=== PATIENT | female | born 1980 | race Caucasian/White ===

== ENCOUNTER 2016-09-26 02:00 | Inpatient (IN) | payer OTHER ==
[~2016-09-26] VITALS: Ht 170.2 cm; Wt 103.9 kg
[2016-09-26] MEDS ORDERED: OXYTOCIN/NORMAL SALINE 1,000 ML IV SCH ×2 (02:11→16:20)
[2016-09-26] MEDS ORDERED: NALBUPHINE HCL 10 MG/ML AMP IVP PRN (02:15)
[2016-09-26] MEDS ORDERED: TERBUTALINE SULFATE 1 MG/ML VIAL SUBCUT ONE (02:15)
[2016-09-26] MEDS ORDERED: MISOPROSTOL 100 MCG TABLET (CYTOTEC) PO PRN (02:15)
[2016-09-26 02:30] VITALS: BP_SYST 125
[2016-09-26 02:45] LABS: BASOPHILS % (AUTO) 0.2 % (0.0-2.0); EOSINOPHILS # (AUTO) 0.1 K/uL (0.0-0.4); EOSINOPHILS % (AUTO) 0.5 % (0.0-4.0); HEMOGLOBIN 10.2 g/dL (12.0-16.0); LYMPHOCYTES # (AUTO) 2.4 K/uL (1.0-5.5); MEAN CORPUSCULAR HEMOGLOBIN 25 pg (27-31); MEAN CORPUSCULAR HGB CONC 33 % (32-36); MEAN CORPUSCULAR VOLUME 77 fL (79.0-98.0); MONOCYTES # (AUTO) 0.5 K/uL (0.0-1.0); MONOCYTES % (AUTO) 4.2 % (1.7-9.3); NEUTROPHILS # (AUTO) 9.5 K/uL (1.8-7.7); NEUTROPHILS % (AUTO) 76.1 % (40.0-70.0); PLATELET COUNT (AUTO) 325 K/uL (130-430); RED BLOOD CELL COUNT(AUTO) 4.02 MIL/uL (4.2-6.2); RED CELL DISTRIBUTION WIDTH 14.2 % (9.0-15.0); WHITE BLOOD COUNT (AUTO) 12.5 K/uL (4.8-10.8)
[2016-09-26] MEDS: LR 1,000 ML IV SCH ×2 (02:53→10:25)
[2016-09-26] MEDS ORDERED: FENT2mCg/mL-ROPIVA0.2%/NS EPID 0 ML EP ONE (05:19)
[2016-09-26] MEDS ORDERED: fentaNYL CITRATE/PF 100 MCG/2 ML AMP ONE (07:44)
[2016-09-26] MEDS ORDERED: FENT2mCg/mL-ROPIVA0.2%/NS EPID 150 ML EP ONE (07:45)
[2016-09-26] MEDS ORDERED: LR 500 ML IV ONE ×2 (08:42→14:27)
[2016-09-26] MEDS ORDERED: FENT2mCg/mL-ROPIVA0.2%/NS EPID 150 ML EP SCH ×2 (08:45→14:30)
[2016-09-26] MEDS ORDERED: ePHEDrine sulfate 50 MG/ML VIAL IVP PRN ×2 (08:45→14:30)
[2016-09-26] MEDS ORDERED: fentaNYL CITRATE/PF 100 MCG/2 ML AMP EP ONE ×2 (08:45→14:30)
[2016-09-26] MEDS ORDERED: ROPIVACAINE 40 MG/20 ML AMP EP ONE (11:00)
[2016-09-26] MEDS ORDERED: ONDANSETRON HCL 4 MG/2 ML VIAL IVP PRN (14:30)
[2016-09-26] MEDS ORDERED: OXYTOCIN/NORMAL SALINE 1,000 ML IV ONE (16:20)
[2016-09-26] MEDS ORDERED: GLYCERIN/WITCH HAZEL (TUCKS PADS) TP PRN (16:30)
[2016-09-26] MEDS ORDERED: MEASLES,MUMPS&RUBELLA VACC/PF 12500 UNIT/0.5 ML VIAL SUBQ PRN (16:30)
[2016-09-26] MEDS ORDERED: RHO(D) IMMUNE GLOBULIN/MALTOSE 1500 UNITS/1.3 ML (WINHRO) IM PRN (16:30)
[2016-09-26] MEDS ORDERED: DERMOPLAST SPRAY TP PRN (16:30)
[2016-09-26] MEDS ORDERED: ACETAMINOPHEN 325 MG TABLET PO PRN (16:30)
[2016-09-26] MEDS ORDERED: LANOLIN 7 GM OINT. TP PRN (16:30)
[2016-09-26] MEDS ORDERED: HYDROCORTISONE 0.5%, 28.35 GM TOPICAL CREAM TP PRN (16:30)
[2016-09-26] MEDS ORDERED: METHYLERGONOVINE MALEATE 0.2 MG TABLET PO PRN (16:30)
[2016-09-26] MEDS ORDERED: ANUSOL 1 EA SUPP.RECT (PREPARATION H) RC PRN (16:30)
[2016-09-26] MEDS ORDERED: OXYCODONE/ACETAMINOPHEN 5-325 TABLET PO PRN ×2 (16:30)
[2016-09-26] MEDS ORDERED: DOCUSATE SODIUM 100 MG CAPSULE PO PRN (16:30)
[2016-09-26] MEDS ORDERED: SENNOSIDES/DOCUSATE SODIUM 1 TAB TABLET(SENOKOT-S) PO PRN (16:30)
[2016-09-26] MEDS: IBUPROFEN 600 MG TABLET PO SCH (18:03)
[2016-09-26] MEDS ORDERED: TEMAZEPAM 15 MG CAPSULE PO PRN (21:00)
[2016-09-27] MEDS: IBUPROFEN 600 MG TABLET PO SCH ×3 (05:49→18:13)
[2016-09-27 07:09] LABS: HEMOGLOBIN 8.4 g/dL (12.0-16.0)
[2016-09-28] MEDS: IBUPROFEN 600 MG TABLET PO SCH ×3 (00:20→12:29)
== END 2016-09-28 12:40 | disposition home or self-care (01) | DRG 775 ==
LOC: SPU 02:00
PROVIDERS: ADMIT Obstetrics & Gynecology; ATTEND Obstetrics & Gynecology
PROC: 10E0XZZ Delivery of Products of Conception, External Approach (ICD-10-PCS; principal; 2016-09-26)
PROC: 0HQ9XZZ Repair Perineum Skin, External Approach (ICD-10-PCS; 2016-09-26)
PROC: 3E0S3CZ (ICD-10-PCS; 2016-09-26)
PROC: 00HU33Z Insertion of Infusion Device into Spinal Canal, Percutaneous Approach (ICD-10-PCS; 2016-09-26)
PROC: 10907ZC Drainage of Amniotic Fluid, Therapeutic from Products of Conception, Via Natural or Artificial Opening (ICD-10-PCS; 2016-09-26)
DX: O13.4 Gestational [pregnancy-induced] hypertension without significant proteinuria, complicating childbirth (principal); O69.81X0 Labor and delivery complicated by cord around neck, without compression, not applicable or unspecified; Z3A.39 39 weeks gestation of pregnancy; Z37.0 Single live birth; O70.0 First degree perineal laceration during delivery; O99.214 Obesity complicating childbirth; E66.01 Morbid (severe) obesity due to excess calories; Z68.35 Body mass index [BMI] 35.0-35.9, adult; O09.523 Supervision of elderly multigravida, third trimester
CPT/HCPCS: 36415; 85018-TC; 85025; 86592; 86886; 86900; 86901; J2405; J2590; J2795; J3010; J7120

== ENCOUNTER 2023-04-10 07:24 | Day surgery (SDC) | payer OTHER ==
[~2023-04-10] VITALS: Ht 170.2 cm; Wt 85.3 kg
[~2023-04-10 07:24] MED LIST: CEFAZOLIN SOD 2 GM in D5W 50 ML IV ONE
[2023-04-10 08:14] LABS: HCG,QUAL RESULT NEGATIVE (NEGATIVE)
[2023-04-10] MEDS ORDERED: ACETAMINOPHEN I.V. 1000 MG 100 ML IV ONE (09:26)
[2023-04-10] MEDS ORDERED: MIDAZOLAM HCL 2 MG/2 ML VIAL (VERSED) ONE (09:26)
[2023-04-10] MEDS ORDERED: fentaNYL CITRATE/PF 100 MCG/2 ML AMP ONE (09:26)
[2023-04-10] MEDS ORDERED: LR 1,000 ML IV.SOLN IV ONE (09:35)
[2023-04-10] MEDS ORDERED: NS 1000 ML IV.SOLN IV ONE (09:35)
[2023-04-10] MEDS ORDERED: PROPOFOL 200MG/ 20ML VIAL (DIPRIVAN) IV ONE (09:35)
[2023-04-10] MEDS ORDERED: ePHEDrine sulfate 50 MG/ML VIAL ONE (09:35)
[2023-04-10] MEDS ORDERED: BUPIVACAINE /PF 0.25% 30 ML VIAL INJ ONE (09:35)
[2023-04-10] MEDS ORDERED: ONDANSETRON HCL 4 MG/2 ML VIAL ONE ×2 (09:35→11:25)
[2023-04-10] MEDS ORDERED: KETOROLAC TROMETHAMINE 30 MG VIAL ONE (09:35)
[2023-04-10] MEDS ORDERED: SEVOFLURANE 15 MIN GAS INH ONE (09:35)
[2023-04-10] MEDS ORDERED: DEXAMETHASONE SOD PHOSPHATE 4 MG/ML VIAL ONE (09:35)
[2023-04-10] MEDS ORDERED: LR 1,000 ML IV ONE (10:00)
[2023-04-10] MEDS ORDERED: ONDANSETRON HCL 4 MG/2 ML VIAL IVP PRN (10:00)
[2023-04-10] MEDS ORDERED: HYDROmorphone 1 MG/ML INJ. CARTRIDGE IVP PRN (10:00)
[2023-04-10] MEDS ORDERED: fentaNYL CITRATE/PF 100 MCG/2 ML AMP IVP PRN ×2 (10:00)
[2023-04-10 10:41] VITALS: O2SAT 98
[2023-04-10] MEDS ORDERED: D5/0.45 NS 1,000 ML IV SCH (11:15)
[2023-04-10] MEDS ORDERED: HYDROcodone/ACETAMIN 5-325 MG TAB (NORCO/ VICODIN) PO PRN (11:15)
[2023-04-10 13:27] VITALS: BP_SYST 133; PULSE 82; RESP 18
== END 2023-04-10 13:30 | disposition home or self-care (01) ==
LOC: SMU 07:24 → SDS 07:24
PROVIDERS: ATTEND Colon & Rectal Surgery
DX: I83.93 Asymptomatic varicose veins of bilateral lower extremities (principal); I83.813 Varicose veins of bilateral lower extremities with pain; F41.9 Anxiety disorder, unspecified; E66.9 Obesity, unspecified; Z68.30 Body mass index [BMI] 30.0-30.9, adult; Z82.3 Family history of stroke
CPT/HCPCS: 87081; 37765; 84703; 88304; J3490; J0690; J1100; J1885; J3465; J2405; J2704; J3010; J7060; J7120; J7030; J0131